=== PATIENT | male | born 1960 | race Caucasian/White ===

== ENCOUNTER 2024-10-15 06:34 | Day surgery (SDC) | payer BC, OTHER ==
[2024-10-12 10:38] VITALS: BMI 23.4
[2024-10-15 09:07] LABS: INR 1.17 (0.83-1.09); PROTHROMBIN TIME (PATIENT) 12.7 SEC (9.7-13.0)
[2024-10-15] MEDS ORDERED: oxyCODONE HCL 5 MG TABLET PO PRN (09:51)
[2024-10-15] MEDS ORDERED: ONDANSETRON 4 MG/2 ML VIAL IVPUSH PRN (09:51)
[2024-10-15] MEDS ORDERED: SODIUM CHLORIDE 1,000 ML IV SCH (10:00)
[2024-10-15] MEDS ORDERED: MIDAZOLAM HCL 2 MG/2 ML SINGLE DOSE VIAL ONE (10:17)
[2024-10-15] MEDS ORDERED: PROPOFOL 20 ML ONE (10:17)
[2024-10-15] MEDS ORDERED: ceFAZolin SODIUM 1 GM VIAL ONE (10:18)
[2024-10-15] MEDS: ceFAZolin SODIUM 1 GM VIAL IVPB ONE (10:36)
[2024-10-15] MEDS: LIDOCAINE HCL 1%, 10 MG/ML (20ML VIAL) NR ONE (10:51)
[2024-10-15] MEDS ORDERED: ACETAMINOPHEN INJECTION 100 ML ONE (13:03)
[2024-10-15] MEDS: ACETAMINOPHEN 1000 MG/100 ML BAG IVPB PRN (13:06)
[2024-10-15 15:28] VITALS: RESP 20; TEMP 97.3
[2024-10-15 15:30] VITALS: BP 124/65; PULSE 70
== END 2024-10-15 15:40 | disposition home or self-care (01) ==
LOC: JASU-SURG 06:34
PROVIDERS: ATTEND Surgery
PROC: 031C0ZF Bypass Left Radial Artery to Lower Arm Vein, Open Approach (ICD-10-PCS; principal; 2024-10-15 09:30)
DX: I12.0 Hypertensive chronic kidney disease with stage 5 chronic kidney disease or end stage renal disease (principal); N18.6 End stage renal disease; Z99.2 Dependence on renal dialysis
CPT/HCPCS: 36415; 82962; 84132; 85610; 94760; J0131

== ENCOUNTER 2024-10-30 13:48 | Inpatient (IN) | payer OTHER, BC ==
[2024-10-30] MEDS ORDERED: ACETAMINOPHEN INJECTION 100 ML ONE (15:13)
[2024-10-30] MEDS: SODIUM CHLORIDE 1,000 ML IV SCH (15:32)
[2024-10-30] MEDS: ACETAMINOPHEN 1000 MG/100 ML BAG IVPB ONE ×2 (15:33)
[2024-10-30 15:34] LABS: HEMATOCRIT 36.7 % (40.1-51.0); HEMOGLOBIN 11.8 g/dL (13.7-17.5); MCHC 32.2 g/dl (32.3-36.5); MEAN CELL VOLUME 94.3 fl (79.0-92.2); MEAN PLT VOLUME 9.2 fl (9.4-12.4); PLATELET COUNT 254 x10^3/uL (163-337); RDW 12.7 % (12.2-16.4)
[2024-10-30 15:42] LABS: INR 1.13 (0.83-1.09); PROTHROMBIN TIME (PATIENT) 12.4 SEC (9.7-13.0)
[2024-10-30 15:45] LABS: ACTIVATED PTT 25.9 SECONDS (25.2-36.5)
[2024-10-30 15:49] LABS: CHLORIDE 102 mmol/L (98-107); SODIUM 133 mmol/L (136-145)
[2024-10-30 15:51] LABS: CALCIUM 8.5 mg/dL (8.5-10.1)
[2024-10-30 15:52] LABS: ALBUMIN 2.9 g/dl (3.4-5.0); CO2 25 mmol/L (21-32)
[2024-10-30 15:53] LABS: BLOOD UREA NITROGEN 39.5 mg/dL (7-18); GLUCOSE,RANDOM 200 mg/dL (74-106)
[2024-10-30 15:55] LABS: CREATININE 5.2 mg/dL (0.55-1.3); SGOT/AST 100 U/L (15-37); SGPT/ALT 44 U/L (13-61)
[2024-10-30 15:56] LABS: CHOLESTEROL 113 mg/dL (50-200)
[2024-10-30 15:57] LABS: TOT PROT 7.1 g/dl (6.4-8.2)
[2024-10-30 15:58] LABS: BILIRUBIN,TOTAL 1.1 mg/dL (0.2-1); LDL CHOLESTEROL (ONLY SJRH) 49 mg/dL (5-100)
[2024-10-30 15:59] LABS: ALK PHOS 165 U/L (45-117); HDL CHOLESTEROL 49 mg/dL (40-60)
[2024-10-30] MEDS: SODIUM CHLORIDE 500 ML IV STA (16:00)
[2024-10-30 16:29] LABS: ANION GAP 6 mmol/L (4-13); POTASSIUM 6.8 mmol/L (3.5-5.1)
[2024-10-30 16:31] LABS: VENOUS BASE EXCESS 2.3 mmol/L (-2-2); VENOUS O2 SATURATION 87.5 % (70-80); VENOUS PH 7.472 (7.310-7.410)
[2024-10-30] MEDS: PIPERACILLIN/TAZOB 3.375 GM 3.375 GM in DEXTROSE 5%-WATER - 50 ML IVPB ONE (16:45)
[2024-10-30] MEDS ORDERED: VANCOMYCIN 1 GM PREMIX (F) 1 GM/200 ML BAG ONE (16:58)
[2024-10-30] MEDS ORDERED: PIPERACILLIN/TAZOB 3.375 GM 3.375 GM/50 ML BAG IVPB ONE (16:58)
[2024-10-30 17:13] LABS: INR 1.18 (0.83-1.09)
[2024-10-30] MEDS: VANCOMYCIN 1,000 MG in DEXTROSE 5%-WATER - 250 ML IVPB ONE (17:15)
[2024-10-30] MEDS: SODIUM CHLORIDE 0.9% 500 ML INFUS.BAG IV ONE (17:55)
[2024-10-30 17:56] LABS: EPI CELLS 2 /uL (0-25.1); HYALINE CASTS 0 /uL (0-3.1); URINE APPEARANCE CLOUDY; URINE BACTERIA >9,000 /uL (0-1359); URINE BILIRUBIN NEGATIVE (NEGATIVE); URINE COLOR ORANGE; URINE GLUCOSE (UA) NEGATIVE (NEGATIVE); URINE KETONE NEGATIVE (NEGATIVE); URINE LEUK ESTERASE 2+ (NEGATIVE); URINE NITRITE NEGATIVE (NEGATIVE); URINE PROTEIN 2+ (NEGATIVE); URINE RBC 4899 /uL (0-23.9); URINE WBC 400 /uL (0-25.8)
[2024-10-30 19:03] LABS: INR 1.23 (0.83-1.09); PROTHROMBIN TIME (PATIENT) 13.5 SEC (9.7-13.0)
[2024-10-30 19:05] LABS: ACTIVATED PTT 27.6 SECONDS (25.2-36.5)
[2024-10-30 19:09] LABS: POTASSIUM 4.5 mmol/L (3.5-5.1)
[2024-10-30 19:10] LABS: CALCIUM 8.8 mg/dL (8.5-10.1)
[2024-10-30 19:11] LABS: BLOOD UREA NITROGEN 39.7 mg/dL (7-18)
[2024-10-30 19:14] LABS: CREATININE 5.1 mg/dL (0.55-1.3)
[2024-10-30] MEDS ORDERED: KETOROLAC TROMETHAMINE 15 MG/ML VIAL ONE (19:51)
[2024-10-30] MEDS: KETOROLAC TROMETHAMINE 15 MG/ML VIAL IM ONE (19:52)
[2024-10-30] MEDS: KETOROLAC TROMETHAMINE 15 MG/ML VIAL IVPUSH ONE (19:56)
[2024-10-30] MEDS ORDERED: ONDANSETRON 4 MG/2 ML VIAL IVPUSH PRN (20:45)
[2024-10-30] MEDS ORDERED: ACETAMINOPHEN 1000 MG/100 ML BAG IVPB PRN (20:46)
[2024-10-30] MEDS: LIDOCAINE PATCH REMOVAL MC SCH (22:26)
[2024-10-30] MEDS: INSULIN ASPART SLIDING SCALE (NOVOLOG) 1 VIAL SQ SCH (22:32)
[2024-10-31] MEDS: PIPERACILLIN/TAZOB 2.25 GM 2.25 GM in DEXTROSE 5%-WATER - 50 ML IVPB SCH (02:21)
[2024-10-31] MEDS: HEPARIN NA (PORCINE) 5,000 UNITS/ML 1ML VIAL SQ SCH (05:50)
[2024-10-31 06:55] LABS: HEMATOCRIT 34.3 % (40.1-51.0); HEMOGLOBIN 10.7 g/dL (13.7-17.5); MCHC 31.2 g/dl (32.3-36.5); MEAN CELL VOLUME 95.8 fl (79.0-92.2); MEAN PLT VOLUME 9.9 fl (9.4-12.4); PLATELET COUNT 264 x10^3/uL (163-337); RDW 12.8 % (12.2-16.4)
[2024-10-31 07:10] LABS: POTASSIUM 5.3 mmol/L (3.5-5.1)
[2024-10-31 07:14] LABS: CALCIUM 8.6 mg/dL (8.5-10.1)
[2024-10-31 07:15] LABS: ALBUMIN 2.6 g/dl (3.4-5.0); BLOOD UREA NITROGEN 47.3 mg/dL (7-18); MAGNESIUM 1.8 mg/dL (1.8-2.4)
[2024-10-31 07:18] LABS: CREATININE 6.3 mg/dL (0.55-1.3); PHOSPHOROUS 4.3 mg/dL (2.5-4.9)
[2024-10-31 07:19] LABS: BILIRUBIN,TOTAL 0.7 mg/dL (0.2-1)
[2024-10-31] MEDS ORDERED: SODIUM CHLORIDE 250 ML IV PRN (08:14)
[2024-10-31] MEDS: CLOPIDOGREL BISULFATE 75 MG TABLET (FP) PO SCH (09:38)
[2024-10-31] MEDS: ATORVASTATIN CA 80 MG TABLET (FP) PO SCH (09:38)
[2024-10-31] MEDS: ASPIRIN 81 MG CHEWABLE TABLETS PO SCH (09:38)
[2024-10-31] MEDS: LIDOCAINE 4% PATCH TP SCH (09:38)
[2024-10-31] MEDS ORDERED: ACETAMINOPHEN 325 MG TABLET (FP) PO PRN (09:52)
[2024-10-31] MEDS: ACETAMINOPHEN 325 MG TABLET (FP) PO PRN (10:49)
[2024-10-31] MEDS: FAMOTIDINE 10 MG TABLET PO SCH (11:28)
[2024-10-31] MEDS: CycloBENZAprine HCL 5 MG TABLET PO ONE (15:52)
[2024-10-31 18:03] VITALS: BMI 25.7
[2024-10-31 21:00] LABS: HCV DIAGNOSTIC IN-HOUSE W/RFLX NON-REACTIVE (NONREACTIVE)
[2024-10-31] MEDS: KETOCONAZOLE 2% CREAM - 60GM TUBE TP SCH (23:50)
[2024-11-01 08:01] LABS: ABSOLUTE IMMATURE GRANULOCYTES 0.05 x10^3/uL (0.0-0.031); BASOPHILS # 0.02 x10^3/uL (0.01-0.08); EOSINOPHIL % 5.9 % (0.8-7.0); HEMATOCRIT 33.9 % (40.1-51.0); HEMOGLOBIN 10.6 g/dL (13.7-17.5); MCHC 31.3 g/dl (32.3-36.5); MEAN CELL VOLUME 95.5 fl (79.0-92.2); MEAN PLT VOLUME 9.9 fl (9.4-12.4); MONOCYTE # 0.53 x10^3/uL (0.30-0.82); MONOCYTE % 3.9 % (5.3-12.2); PLATELET COUNT 240 x10^3/uL (163-337); RDW 13.1 % (12.2-16.4)
[2024-11-01 12:46] LABS: CALCIUM 7.7 mg/dL (8.5-10.1)
[2024-11-01 12:47] LABS: BLOOD UREA NITROGEN 27.4 mg/dL (7-18); POTASSIUM 4.2 mmol/L (3.5-5.1)
[2024-11-01 12:50] LABS: CREATININE 5.1 mg/dL (0.55-1.3)
[2024-11-02 07:08] LABS: HEMATOCRIT 33.3 % (40.1-51.0); HEMOGLOBIN 10.4 g/dL (13.7-17.5); MCHC 31.2 g/dl (32.3-36.5); PLATELET COUNT 250 x10^3/uL (163-337); RDW 13.2 % (12.2-16.4)
[2024-11-02 07:28] LABS: POTASSIUM 4.2 mmol/L (3.5-5.1)
[2024-11-02 07:31] LABS: CALCIUM 8.1 mg/dL (8.5-10.1)
[2024-11-02 07:32] LABS: BLOOD UREA NITROGEN 36.9 mg/dL (7-18)
[2024-11-02 07:35] LABS: CREATININE 6.4 mg/dL (0.55-1.3)
[2024-11-02] MEDS: CEFTRIAXONE 1 G/50 ML PREMIX 50 ML IVPB SCH (09:48)
[2024-11-02 16:27] VITALS: RESP 18
[2024-11-02 18:43] VITALS: BP 134/76; PULSE 67; TEMP 98.1
== END 2024-11-02 20:07 | DRG 871 ==
LOC: JER 13:48 → JERBED 19:19 → J4W 22:53
PROVIDERS: ADMIT Internal Medicine; ATTEND Student in an Organized Health Care Education/Training Program
PROC: 5A1D70Z Performance of Urinary Filtration, Intermittent, Less than 6 Hours Per Day (ICD-10-PCS; principal; 2024-10-31)
DX: A41.50 Gram-negative sepsis, unspecified (principal); G93.41 Metabolic encephalopathy; N18.6 End stage renal disease; I12.0 Hypertensive chronic kidney disease with stage 5 chronic kidney disease or end stage renal disease; I69.354 Hemiplegia and hemiparesis following cerebral infarction affecting left non-dominant side; N39.0 Urinary tract infection, site not specified; R65.20 Severe sepsis without septic shock; I69.320 Aphasia following cerebral infarction; E11.22 Type 2 diabetes mellitus with diabetic chronic kidney disease; E11.65 Type 2 diabetes mellitus with hyperglycemia; Z99.2 Dependence on renal dialysis; D64.9 Anemia, unspecified; E78.5 Hyperlipidemia, unspecified; E87.5 Hyperkalemia; B96.20 Unspecified Escherichia coli [E. coli] as the cause of diseases classified elsewhere
CPT/HCPCS: 0241U-QW; 36415; 70450-TC; 70496-TC; 70498-TC; 71045-TC-FY; 72131-TC; 74230-TC-FY; 80048; 80053; 80061; 81003; 82550; 82553; 82803; 82962; 83036; 83605; 83735; 84100; 84153; 84484; 85025; 85027; 85610; 85730; 86704; 86803; 86850; 86900; 86901; 87040; 87086; 87186; 87340; 87517; 92611-GN; 93005; 93010; 97161-GP; 99291; J0131; J1644; Q9967